=== PATIENT | male | born 1965 | race Caucasian/White ===

== ENCOUNTER 2016-09-06 12:15 | Emergency (ER) | payer MEDICAID, OTHER ==
[~2016-09-06] VITALS: Ht 170.2 cm; Wt 155.7 kg
[2016-09-06] MEDS ORDERED: LISINOPRIL 20 MG TABLET ONE (12:46)
[2016-09-06] MEDS ORDERED: AMLODIPINE 5 MG TABLET PO ONE (13:00)
[2016-09-06] MEDS ORDERED: HYDROCHLOROTHIAZIDE 25 MG TABLET PO ONE (13:00)
[2016-09-06] MEDS ORDERED: LISINOPRIL 20 MG TABLET PO ONE (13:00)
[2016-09-06] MEDS ORDERED: OMEP-110 PO (13:04)
[2016-09-06] MEDS ORDERED: ATOR80TA75 PO (13:04)
[2016-09-06] MEDS ORDERED: LISI40TA PO (13:04)
[2016-09-06] MEDS ORDERED: HYDR25TA6 PO (13:04)
[2016-09-06] MEDS ORDERED: ATEN25TA PO (13:04)
[2016-09-06] MEDS ORDERED: AMLO10TA2 PO (13:04)
[2016-09-06 13:55] LABS: HEMOGLOBIN 14.7 g/dL (13.7-18.0)
[2016-09-06 13:56] LABS: BLOOD UREA NITROGEN 13 mg/dL (7-18)
[2016-09-06 14:03] LABS: IS PT STATUS REG ER OR PRE ER? YES
[2016-09-06 15:14] VITALS: BP 168/90
== END 2016-09-06 15:16 | disposition home or self-care (01) ==
LOC: ED 15:00
DX: I10 Essential (primary) hypertension (principal); E03.9 Hypothyroidism, unspecified; K21.9 Gastro-esophageal reflux disease without esophagitis
CPT/HCPCS: 36415; 71010; 80048; 82040; 83880; 84484; 85025; 93005

== ENCOUNTER 2016-10-08 14:33 | Emergency (ER) | payer MEDICAID ==
[~2016-10-08] VITALS: Ht 170.2 cm; Wt 158.5 kg
[~2016-10-08 14:33] MED LIST: AMLO10TA2 PO; ATEN25TA PO; ATOR80TA75 PO; HYDR25TA6 PO; LISI40TA PO; OMEP-110 PO
[2016-10-08] MEDS ORDERED: POTA25TA4 PO (15:13)
[2016-10-08] MEDS ORDERED: FURO-93 PO (15:13)
[2016-10-08] MEDS ORDERED: HYDROcodone/APAP 10/325 MG TABLET PO ONE (15:44)
[2016-10-08] MEDS ORDERED: HYDROcodone/APAP 10/325 MG TABLET ONE (16:13)
[2016-10-08 16:36] LABS: ASPARTATE AMINO TRANSFERASE 16 U/L (15-37); BLOOD UREA NITROGEN 22 mg/dL (7-18)
[2016-10-08 16:41] LABS: IS PT STATUS REG ER OR PRE ER? YES
[2016-10-08 19:24] VITALS: BP 104/43
== END 2016-10-08 19:26 | disposition home or self-care (01) ==
LOC: ED 15:43
DX: S63.621A Sprain of interphalangeal joint of right thumb, initial encounter (principal); K21.9 Gastro-esophageal reflux disease without esophagitis; R55 Syncope and collapse; I10 Essential (primary) hypertension; E11.65 Type 2 diabetes mellitus with hyperglycemia; W19.XXXA Unspecified fall, initial encounter; Y93.89 Activity, other specified; Y99.8 Other external cause status; Y92.89 Other specified places as the place of occurrence of the external cause
CPT/HCPCS: 29125; 36415; 71010; 80053; 84484; 85025; 93005; 99285

== ENCOUNTER 2017-05-25 10:59 | Emergency (ER) | payer MEDICAID ==
[~2017-05-25] VITALS: Ht 170.2 cm; Wt 145.9 kg
[~2017-05-25 10:59] MED LIST changes: +ATOR-2 PO; -ATOR80TA75 PO; +FURO-93 PO; +POTA25TA4 PO
[2017-05-25 11:03] VITALS: BP 164/82
[2017-05-25] MEDS ORDERED: IBUPROFEN 200 MG TABLET ONE (11:38)
[2017-05-25] MEDS ORDERED: IBUPROFEN 200 MG TABLET PO ONE (12:00)
== END 2017-05-25 12:18 | disposition home or self-care (01) ==
LOC: ED 12:11
DX: S93.621A Sprain of tarsometatarsal ligament of right foot, initial encounter (principal); E11.9 Type 2 diabetes mellitus without complications; I10 Essential (primary) hypertension; K21.9 Gastro-esophageal reflux disease without esophagitis; E03.9 Hypothyroidism, unspecified; Z88.0 Allergy status to penicillin; Z90.49 Acquired absence of other specified parts of digestive tract; X50.1XXA Overexertion from prolonged static or awkward postures, initial encounter; Y93.89 Activity, other specified; Y92.89 Other specified places as the place of occurrence of the external cause; Y99.8 Other external cause status
CPT/HCPCS: 99284

== ENCOUNTER 2018-09-27 16:03 | Emergency (ER) | payer MEDICAID ==
[~2018-09-27] VITALS: Ht 170.2 cm; Wt 130.0 kg
[~2018-09-27 16:03] MED LIST changes: -AMLO10TA2 PO; +AMLO10TA8 PO
[2018-09-27 16:10] VITALS: BP 166/86
--- NOTE | 2018-09-27 17:23 | NUR ---
edt at bedside for clean and splint
== END 2018-09-27 18:15 | disposition home or self-care (01) ==
LOC: ED 17:46
DX: S60.571A Other superficial bite of hand of right hand, initial encounter (principal); K21.9 Gastro-esophageal reflux disease without esophagitis; E03.9 Hypothyroidism, unspecified; I10 Essential (primary) hypertension; E11.9 Type 2 diabetes mellitus without complications; W54.0XXA Bitten by dog, initial encounter; Y93.89 Activity, other specified; Y92.89 Other specified places as the place of occurrence of the external cause; Y99.8 Other external cause status
CPT/HCPCS: 29125; 99283